=== PATIENT | female | born 1980 | race Caucasian/White ===

== ENCOUNTER 2017-08-12 23:11 | Observation (INO) ==
[2017-08-12] MEDS ORDERED: ONDANSETRON 4 MG/2 ML VIAL IV ONE ×2 (23:21→23:48)
[2017-08-12] MEDS ORDERED: 0.9 % SODIUM CHLORIDE 1,000 ML IV ONE (23:21)
[2017-08-12] MEDS: HYDROmorphone 2 MG/ML VIAL IV PRN (23:49)
[2017-08-13] MEDS: HYDROmorphone 2 MG/ML VIAL IV PRN ×6 (00:03→07:45)
[2017-08-13 00:24] LABS: Basophils # (Auto) 0.1 K/mcL (0.0-0.3); Basophils % (Auto) 0.4 % (0.0-2.0); Eosinophils # (Auto) 0.5 K/mcL (0.0-0.7); Granulocytes % (Auto) 78.8 % (38.0-78.0); Lymphocytes # (Auto) 2.1 K/mcL (1.5-4.8); Lymphocytes % (Auto) 12.7 % (15.5-49.0); Mean Cell Volume 83.5 fL (80.0-100.0); Mean Corpuscular HGB Conc 33.1 g/dL (31.0-36.0); Mean Corpuscular Hemoglobin 27.7 pg (26.0-34.0); Monocytes # (Auto) 0.9 K/mcL (0.1-0.9); Monocytes % (Auto) 5.1 % (1.0-12.0); Platelet Count 425 K/mcL (140-440); RBC 4.88 M/mcL (4.00-5.20); Red Cell Distribution Width 12.8 % (11.5-14.5)
[2017-08-13] MEDS ORDERED: NALOXONE HCL 0.4 MG/ML VIAL IV PRN ×2 (00:55→10:03)
[2017-08-13] MEDS ORDERED: ACETAMINOPHEN 325 MG TABLET PO PRN (00:55)
[2017-08-13] MEDS ORDERED: PROMETHAZINE 25 MG/ML VIAL IM PRN (00:55)
[2017-08-13] MEDS ORDERED: ONDANSETRON 4 MG/2 ML VIAL IV PRN (00:55)
[2017-08-13] MEDS ORDERED: ONDANSETRON 4 MG/2 ML VIAL IV ONE ×2 (00:56→09:35)
[2017-08-13] MEDS ORDERED: LEVOFLOXACIN 500 MG/100 ML BAG IV SCH (01:00)
[2017-08-13] MEDS ORDERED: 0.9 % SODIUM CHLORIDE 1,000 ML IV SCH (01:00)
--- NOTE | 2017-08-13 01:05 | Emergency Department Note ---
Female Urogenital HPI - General Chief complaint: Flank Pain Stated complaint: right flank pain Time Seen by Provider: 08/12/17 23:39 Source: patient Mode of arrival: ambulatory Limitations: no limitations - History of Present Illness HPI Narrative: 37-year-old female with known history of kidney stones comes in for a 4 day history of right flank pain is relatively constant now with severe nausea. She is driving now. Phenergan orally at home did not help. Hydrocodone did not help with pain at home. Hot bath did help some and she spent much of the day in the bathtub. Denies fever or diarrhea. She did start taking Flomax again this morning she thinks she has had another kidney stone. Last seen by Dr. Kruse 1 year ago for stone follow-up - Related Data Home Medications Medication Instructions Recorded Confirmed cholecalciferol (vitamin D3) 5,000 5,000 unit PO QDAY cap 03/19/15 08/22/16 unit capsule multivitamin,[id number] 1 tab PO QDAY 03/19/15 08/22/16 tablet pyridoxine (vitamin B6) PO QDAY 08/22/16 08/22/16 Previous Rx's Medication Instructions Recorded ondansetron 8 mg disintegrating 8 mg PO Q8HP PRN #20 tab 07/13/16 tablet tamsulosin 0.4 mg capsule 0.4 mg PO HS PRN #30 cap 07/13/16 oxycodone-acetaminophen 10 mg-325 1 tab PO Q4H #30 tab 08/22/16 mg tablet Allergies Allergy/AdvReac Type Severity Reaction Status Date / Time IV CONTRAST Allergy Intermediate HIVES Uncoded 08/22/16 08:36 Review of Systems All systems ED: reviewed and negative except as stated. Past Medical History - Past Medical History Attestation: Yes: The following information was validated with the patient. 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 Normocephalic atraumatic. Conjunctive are clear sclerae nonicteric. No nasal discharge or congestion. Oropharynx is pink and moist. Neck is supple without lymphadenopathy or thyromegaly. Heart is regular rate and rhythm no murmur appreciated. Lungs are clear to auscultation bilaterally without wheezes rales rhonchi or respiratory distress. Abdomen is soft nontender nondistended except for the right flank area which is quite sensitive to even touch. However I do not see any redness or signs of trauma there. No pedal edema. +2 radial pulse. Alert oriented. Limitations: no limitations Course Vital Signs Pulse Rate 83 08/12/17 23:11 Respiratory Rate 14 08/12/17 23:11 Blood Pressure 147/50 08/12/17 23:11 Pulse Oximetry (%) 98 08/12/17 23:11 Pulse Rate 73 08/13/17 00:16 Respiratory Rate 15 08/13/17 00:16 Blood Pressure 118/48 08/13/17 00:16 Pulse Oximetry (%) 95 08/13/17 00:16 Urogenital-Female - Lab Data Lab results reviewed: Yes I reviewed the patient's lab results. Result diagrams: 08/12/17 23:30 Lab Results 08/12/17 08/12/17 Range/Units 23:30 23:30 WBC 16.7 H (4.5-11.0) K/mcL RBC 4.88 (4.00-5.20) M/mcL Hgb 13.5 (12.0-15.0) g/dL Hct 40.7 (36.0-48.0) % POC Hct 41.0 (36.0-48.0) % MCV 83.5 (80.0-100.0) fL MCH 27.7 (26.0-34.0) pg MCHC 33.1 (31.0-36.0) g/dL RDW 12.8 (11.5-14.5) % Plt Count 425 (140-440) K/mcL MPV 9.2 (7.4-10.4) fL Gran % 78.8 H (38.0-78.0) % Lymph % (Auto) 12.7 L (15.5-49.0) % [place] % (Auto) 5.1 (1.0-12.0) % Eos % (Auto) 3.0 (0.0-7.0) % Baso % (Auto) 0.4 (0.0-2.0) % Gran # 13.2 H (1.8-8.0) K/mcL Lymph # (Auto) 2.1 (1.5-4.8) K/mcL [place] # (Auto) 0.9 (0.1-0.9) K/mcL Eos # (Auto) 0.5 (0.0-0.7) K/mcL Baso # (Auto) 0.1 (0.0-0.3) K/mcL POC Sodium 139 (133-145) mmol/L POC Potassium 4.4 (3.3-5.1) mmol/L POC Chloride 106 (96-108) mmol/L POC Total CO2 25 (22-30) mmol/L POC BUN 28 H (6-20) mg/dl POC Creatinine 1.3 H (0.6-1.1) mg/dl POC Glucose 169 H (70-105) mg/dL POC WB Ioniz Calcium 1.11 L (1.16-1.32) mmol/L - Radiology Data Radiology results reviewed: Yes I reviewed the patient's radiology results. CT scan of the abdomen pelvis without contrast shows a 1 cm stone proximal right ureter causing moderate to severe right hydronephrosis. There is perinephric stranding there as well. Bilateral collecting stones are noted. Disposition Pt seen by RF ENGINEER/PA only: No Clinical Impression: Hydronephrosis due to obstruction of ureter, Ureteral stone with hydronephrosis Summary: After initial interview and exam patient is treated with Zofran and Dilaudid IV fluids for pain and nausea. This did control her pain and nausea Workup shows leukocytosis and inflamed right kidney with hydronephrosis obstructed by right ureteral stone. This is 1 cm and is very unlikely to pass. Concerned because she has a history of pyelonephritis and sepsis in the past. Here however her vital signs are stable today and afebrile I discussed her case with Dr. Kruse who agreed to accept the patient for further evaluation and care. I agreed to write transition/holding orders keeping her n.p.o. after midnight anticipating possible procedure in the morning. Disposition: Xfer As Outpt/Obs ([facility]) Condition: Fair Referrals: Helen Jimenez ARNP [Primary Care Provider] -
[2017-08-13 04:32] LABS: Appearance,Urine CLEAR; Bacteria,Urine 0 /hpf (0); Bilirubin,Urine NEG (NEG); Color,Urine YELLOW; Glucose,Urine (UA) NEGATIVE (NEG); Leukocyte Esterase,Urine NEG /uL (NEG); Mucus,Urine FEW /hpf (0); Protein,Urine 30 mg/dL (NEG); Specific Gravity,Urine 1.029 (1.000-1.035); Urine Blood NEG mg/dL (<0.03); Urine RBC 5 /hpf (0-1); Urine Squamous Epithelial Cell 5 /hpf (0-4); Urine WBC 2 /hpf (0-4); Urobilinogen,Urine NEG (NEG)
--- NOTE | 2017-08-13 06:50 | Cat Scan Report ---
CLINICAL INFORMATION: Right flank pain COMPARISON: None. TECHNIQUE: 0.625 mm helical slices were obtained from the mid heart through the subtrochanteric regions. Following reconstruction, 2.5 mm sagittal, coronal and axial reformatted images were processed and reviewed at bone and soft tissue windows.The exam was performed using radiation dose optimization techniques including, but not limited to, automated exposure control, adjustment of the mA and/or kV according to patient size and use of iterative reconstruction technique. FINDINGS: There is a 9 x 6 mm stone in the UPJ of the right upper collecting system resulting in moderate right hydronephrosis. There is also diffuse edema and perinephric stranding in the right kidney. The two tiny nonobstructing stone inferior calyx of the right kidney both less than 3 mm. There is a 3 mm stone mid calyx of the right kidney. There are two tiny nonobstructing stones superior calyx of the left kidney, both less than 2 mm. a 2 mm nonobstructing stone seen in the mid calyx of the left kidney. Urinary bladder is unremarkable. Lung bases show no abnormality. There is no effusion. Visualized heart is normal. Small hiatal hernia is noted. Images through the abdomen show the noncontrasted liver is normal. The gallbladder is surgically absent. Common bile duct is mildly dilated, 8 mm, compatible with post cholecystectomy state. Both noncontrasted adrenal glands, spleen, pancreas and aorta are normal. There is no free air, free fluid and no adenopathy. The stomach, small, large bowel and appendix are normal. Images through the pelvis show uterus to be anteverted and anteflexed and borderline enlarged - 9.2 x 4.5 cm. Region of the ovaries are normal. Tubal ligation clips are seen in proper location over the fallopian isthmus regions. Bone windows show no osseous abnormality IMPRESSION: 1. 9 x 6 m stone, in the right UPJ , resulting in moderate hydronephrosis. 2. Scattered smaller nonobstructing stones in the calyces of both kidneys - all less than 3 mm 3. Mild common bile duct dilatation (8 mm) compatible with post cholecystectomy state 4. Borderline uterine enlargement typically indicative of mild adenomyosis Interpreted and Authenticated by: Jose Hudson 08/13/17
[2017-08-13] MEDS ORDERED: PANTOPRAZOLE 40 MG VIAL IV ONE (07:58)
[2017-08-13] MEDS ORDERED: ceFAZolin 1 GM VIAL IV SCH (08:30)
[2017-08-13] MEDS ORDERED: IPRATROPIUM/ALBUTEROL 3 ML AMPUL.NEB NEB ONE (09:23)
--- NOTE | 2017-08-13 09:27 | History and Physical Report ---
DATE OF ADMISSION: 08/13/2017 DATE: 08/13/2017 CURRENT COMPLAINT: Right flank pain. HISTORY OF PRESENT ILLNESS: The patient is a 37-year-old lady with a long history of stones. She was last treated a year ago with ureteroscopy and laser lithotripsy. This was a calcium oxalate stone but never did a 24 hour urine. She was doing well up until Monday where she started to have some pain and then last night became severe, had nausea and vomiting and extended down to the groin. She was seen in the ER, was noted that she had an 8 mm stone in the right UPJ causing obstruction. She was admitted for pain control and presents now for treatment. Otherwise, she states she is urinating well. She does have a history of stones, and again these were calcium oxalate. PAST MEDICAL HISTORY: Significant for depressive disorder, hematuria, kidney stones, metabolic disorder. PAST SURGICAL HISTORY: Cholecystectomy, lithotripsy, tubal ligation and stone treatment. FAMILY HISTORY: Noncontributory. ALLERGIES: IVP CONTRAST. CURRENT MEDICATIONS: Vitamin B6. Spironolactone. Occasionally tamsulosin when she is passing a stone. REVIEW OF SYSTEMS: Cardiac: Denies any chest pain. Respiratory: No wheezing, coughing, or asthma. Psychological: No depression or mood swings. The rest of a 10-point review of systems was reviewed and was negative. PHYSICAL EXAMINATION: GENERAL: This is a very pleasant lady in bed, denying any severe pain at this time. HEENT: Atraumatic, normocephalic. Extraocular movements are intact. Pupils equal, reactive to light and accommodation. NECK: Supple. Trachea is in the midline. No thyromegaly. HEART: Regular rate and rhythm. LUNGS: Clear to auscultation. ABDOMEN: Soft. Positive right CVA tenderness which extends down to the groin. GENITOURINARY: Normal female anatomy. EXTREMITIES: Without clubbing, cyanosis or edema. NEUROLOGIC: Cranial nerves 2-12 intact. IMPRESSION: The patient with right renal stone. I did talk to her about this. She will receive preoperative antibiotics and will take her to surgery today. I did go over the choices that are available, including placing a stent with lithotripsy in the future or ureteroscopy and stone removal. She desires the more definitive measure, and this will be performed today. I did go over the complications, including bleeding, infection, pain, migration of the stone and she understands. Surgery will be scheduled today. Then, a full PARQ discussion was held. We will follow up at the time of surgery. YOVANNY:kadie Job ID: [id number] Doc ID: [id number] Clinton Kruse MD
[2017-08-13] MEDS ORDERED: KETAMINE 100 MG/ML ML IV ONE (09:35)
[2017-08-13] MEDS ORDERED: PROPOFOL 200 MG/20 ML VIAL IV ONE (09:35)
[2017-08-13] MEDS ORDERED: LIDOCAINE HCL/PF 100 MG/5 ML SYRINGE IV ONE (09:35)
[2017-08-13] MEDS ORDERED: ePHEDrine 50 MG/ML AMPUL IV ONE (09:35)
[2017-08-13] MEDS ORDERED: fentaNYL 100 MCG/2 ML VIAL IV ONE (09:35)
[2017-08-13] MEDS ORDERED: SUCCINYLCHOLINE 20 MG/ML ML IV ONE (09:35)
[2017-08-13] MEDS ORDERED: DEXAMETHASONE 10 MG/ML VIAL IV ONE (09:35)
[2017-08-13] MEDS ORDERED: MIDAZOLAM 5 MG/5 ML VIAL IV ONE (09:35)
[2017-08-13] MEDS ORDERED: diphenhydrAMINE 50 MG/ML VIAL IV PRN (10:03)
[2017-08-13] MEDS ORDERED: FLUMAZENIL 0.1 MG/ML ML IV PRN (10:03)
[2017-08-13] MEDS ORDERED: ATROPINE SULFATE 0.4 MG/ML VIAL IV PRN (10:03)
[2017-08-13] MEDS ORDERED: ePHEDrine 50 MG/ML AMPUL IV PRN (10:03)
[2017-08-13] MEDS ORDERED: HYDROmorphone 2 MG/ML VIAL IV PRN (10:03)
[2017-08-13] MEDS ORDERED: PROMETHAZINE 25 MG/ML VIAL IV PRN (10:03)
[2017-08-13] MEDS ORDERED: METOPROLOL TARTRATE 5 MG/5 ML VIAL IV PRN (10:03)
[2017-08-13] MEDS ORDERED: METHOCARBAMOL 1,000 MG/10 ML VIAL IV PRN (10:03)
[2017-08-13] MEDS ORDERED: fentaNYL 100 MCG/2 ML VIAL IV PRN (10:03)
[2017-08-13] MEDS ORDERED: MEPERIDINE 25 MG/ML SYRINGE IV PRN (10:03)
[2017-08-13] MEDS ORDERED: IPRATROPIUM/ALBUTEROL 3 ML AMPUL.NEB NEB PRN (10:03)
[2017-08-13] MEDS ORDERED: LACTATED RINGERS 1,000 ML IV SCH (10:15)
--- NOTE | 2017-08-13 10:49 | Brief Operative Note ---
Date of procedure: 08/13/17 Pre-op diagnosis: right remnal stone Post-op diagnosis: same Procedure: right lihotripsy, stent, ureteroscopy Grafts/Implants: Yes (stent) Anesthesia: GLMA Findings: see note Complications: none Surgeon: Clinton Kruse Specimens Removed/Pathology: none sent Condition: stable Disposition: PACU
--- NOTE | 2017-08-13 10:50 | Discharge Plan ---
Discharge Plan - Patient/Caregiver Discharge Instructions Activity: increase activity as tolerated Diet: Regular Diet Additional Instructions: remove stent on Tue am - Follow up Plan Follow up with: Helen Jimenez ARNP [Primary Care Provider] - Disposition: Home, Self-Care Prognosis: Good Rehab Potential: Good Overall status at discharge: patient is back to baseline
[2017-08-13] MEDS ORDERED: oxyCODONE/APAP 5/325MG TABLET PO PRN (11:03)
--- NOTE | 2017-08-13 13:02 | XRay Report ---
CLINICAL INFORMATION: Reason for Exam:RIGHT URETEROSCOPY WITH HOLMIUM LASER LITHOTRIPSY COMPARISON: None. FINDINGS: A single digital image from the OR shows the proximal end of a double pigtail ureteral stent overlying the contrast opacified inferior renal pelvis. There is moderate hydronephrosis and filling defects within the calyces and pelvis IMPRESSION: Proximal end of a ureteral stent in satisfactory position within the renal pelvis. There is moderate hydronephrosis Interpreted and Authenticated by: Jose Hudson 08/13/17
[2017-08-13] MEDS ORDERED: 0.9 % SODIUM CHLORIDE 10 ML SYRINGE IV SCH (14:00)
--- NOTE | 2017-08-14 07:43 | Operative Note ---
DATE OF OPERATION: 08/13/2017 PREOPERATIVE DIAGNOSIS: Right renal stone. POSTOPERATIVE DIAGNOSIS: Right renal stone. PROCEDURE: Cystoscopy, retrograde pyelogram, ureteroscopy, laser lithotripsy and stent placement. SURGEON: Clinton Kruse MD INDICATION: The patient is a 37-year-old female who has a history of stones. We last saw her a year ago. She has developed sudden right onset of right flank pain. CT scan did show an 8 mm stone and she presents now for removal. PROCEDURE IN DETAIL: The patient was identified and consent was signed. She was given general anesthesia, placed in lithotomy position, prepped and draped in a standard fashion. Cystourethroscopy was performed, which showed normal appearing urethra. Orifices were in their normal position. No tumors or masses were seen. A wire was then passed and we were able to see the stone at the UPJ. We tried the semi-rigid scopes, but they were just not long enough to reach the stone. Finally, we used an access sheath and was able to go over the wire and then used the flexible ureteroscope and was able to see the stone. This was blasted into multiple fragments and some of the fragments were sent off for analysis. The rest of the fragments were small enough that they should pass on their own. The decision was made to leave a stent. A 6 x 24 stent was then placed using the Seldinger technique which showed a good curl in the kidney and in the bladder. Her bladder was drained. The string was left attached and taped to the perineum. She was then awoken and taken to the recovery room in stable condition. She tolerated the procedure well. RZ:geraldine Job ID: [id number] Doc ID: [id number] Clinton Kruse MD
--- NOTE | 2017-08-14 13:45 | Surgical Pathology Report ---
HISTOLOGY SPECIMEN MICROSCOPIC DIAGNOSIS MINERAL MATERIAL, RIGHT URETERAL, EXTRACTION: -- URINARY CALCULI (GROSS DIAGNOSIS), SUBMITTED FOR CHEMICAL ANALYSIS. ([facility]:sln) PROCEDURAL IMPRESSION Right ureteral stone. GROSS DESCRIPTION Received without fixative labeled with the patient information, are two rough surfaced yellow-blair stone fragments 0.1 and 0.3 cm in greatest dimension. No sections taken, gross only. The specimen will be sent for chemical analysis. ([facility]:sln) Electronically Signed by: Barbie Ann D.O.
--- NOTE | 2017-08-16 07:18 | General Surgery Progress Note ---
Surgical - Auxillary Note - Subjective Patient Information: Note initiated : 08/16/17 at 7:17 am Service Date, if different from initiated Date: [] Patient: Chiqui Lin 37 y/o F admitted on 08/13/17 for Rt Flank Pain/Ureteral Stone with Hydronephrosis. Chief Complaint: [] patient taken to surgery. see H&p. stone removed. d/c to home.
== END 2017-08-13 14:20 | disposition home or self-care (01) ==
LOC: MEDSUR 23:11 → ED 23:11 → MEDSUR 08-13 01:10